=== PATIENT | male | born 1980 | race Caucasian/White ===

== ENCOUNTER 2020-06-11 00:34 | Emergency (ER) | payer OTHER ==
[~2020-06-11] VITALS: Ht 185.4 cm; Wt 70.3 kg
[2020-06-11 00:36] VITALS: BP 139/68
== END 2020-06-11 00:54 | disposition home or self-care (01) ==
LOC: ER 00:39
DX: M70.22 Olecranon bursitis, left elbow (principal); Y93.89 Activity, other specified